=== PATIENT | female | born 1990 | race Two or more races ===

== ENCOUNTER 2016-10-29 01:58 | Outpatient (CLI) | payer OTHER ==
[~2016-10-29] VITALS: Ht 165.1 cm; Wt 93.1 kg
[2016-10-29 02:35] VITALS: Ht 165.1 cm; Wt 93.1 kg
[2016-10-29 03:48] LABS: ADD UMIC NO; URINE BILIRUBIN (Dip) NEGATIVE (NEGATIVE); URINE BLOOD (Dip) NEGATIVE (NEGATIVE); URINE COLOR LT. YELLOW (YELLOW); URINE GLUCOSE (Dip) NEGATIVE (NEGATIVE); URINE KETONES (Dip) NEGATIVE (NEGATIVE); URINE LEUKOCYTE ESTERASE (Dip) NEGATIVE (NEGATIVE); URINE NITRITE (Dip) NEGATIVE (NEGATIVE); URINE TOTAL PROTEIN (Dip) NEGATIVE (NEGATIVE); URINE UROBILINOGEN (Dip) 0.2 E.U./dL (0.1-1.0)
--- NOTE | 2016-10-29 03:48 | RADRPT ---
PROCEDURE: Obstetrical ultrasound, limited. CLINICAL INDICATION: Pelvic pain. TECHNIQUE: Multiple sonographic images of the pelvis were obtained using transabdominal technique . Images were obtained with dodd scale and color Doppler. The images were reviewed on a PACS works tation. COMPARISON: No prior studies are available for comparison. FINDINGS: There is a single living intrauterine gestation with the fetus in a vertex presentation. hear t tones of 146 beats per minute are identified. The placenta is posterior in location, grade 0. Th ere is normal amniotic fluid volume with the maximum vertical pocket measuring 5.3 cm. There is no evidence of placenta previa or abruption. Measurements were made in order to determine age. The results are as follows: BPD =4.74 cm HC =17.69 cm AC =14.02 cm FL =3.46 cm. Estimated gestational age of approximately 20 weeks and 1 day. The estimated date of delivery is 03/17/2017. The EFW = 333 +/- 50 grams. Estimated weight percentage equals 7.1%. IMPRESSION: Single viable intrauterine gestation of approximately 20 weeks and 1 day, with an ultrasound VIELKA of 03/17/2017. .Atif Painter MD, MD Date Time Electronically viewed and signed by .Atif Painter MD, MD on 10/29/2016 03:48 .T/
--- NOTE | 2016-10-29 04:28 | PN ---
Date/Time of Note Date/Time of Note DATE: 10/29/16 TIME: 04:25 OB Subjective Subjective Subjective 26 yo P1 @ 20 wks w abdominal pain - no VB, no ctx OB Objective Objective Objective 141/85, 80, 18, 97.8 Abdomen- gravid, n/t SVE- deferred sono- no evidence of placenta previa, nml BRITTNEE, size c/w/d Abdomen: WNL Contractions on Admission: None OB Assessment/Plan Other Assessment: 26 yo P1 @ 20 wks w back pain, now resolved - neg u/a - nml u/s Other plan: d/c home f/u in clinic CLIFFORD WHITE MD Oct 29, 2016 04:28
--- NOTE | 2016-10-29 04:50 | TRIAGE ---
OB Triage Datetime Report Generated by CPN: 10/29/2016 04:50 Datetime: 10/29/2016 03:12 Stage of : OB Triage Labor Evaluation Monitor Mode: External Resting Tone Baldwin: Relaxed Contraction Comments: NO CONTRACTIONS Pain Assessment Pain Scale: 0 Pain Presence: None/Denies Pain Type: N/A Pain Relief Measures: Comfort Measures Pain Assessment Comments: Pt states that her pain went away. Datetime: 10/29/2016 02:49 Stage of : OB Triage Datetime: 10/29/2016 02:12 Stage of : OB Triage Maternal Assessment Level of Consciousness: Fully Conscious DTR's/Clonus: No Clonus Headache: Denies Breath Sounds, Left: Clear and Equal Breath Sounds, Right: Clear and Equal Nausea/Vomiting: Denies RUQ Epigastric Pain: Denies Labor Evaluation Monitor Mode: External (Annotations: PT DENIES CRAMPING) Heart Rate Monitor Mode: Doppler Pain Assessment Pain Scale: 6 Pain Presence: Intermittent Pain Type: Cramping Pain Location: Back Pain Goal: 0 Datetime: 10/29/2016 02:06 Time of Arrival: 10/29/2016 01:50 EGA: 21.1 Arrived By: Ambulatory; Wheelchair Arrived From: Home Chief Complaint: BACK PAIN; VAGINAL PRESSURE Movement: Present Contractions: Denies/Absent Rupture of Membranes: Denies Vaginal Bleeding: None Vaginal Discharge: Denies Recent Sexual Intercouse: Denies Patient Complaints: Back Pain; Other Time Provider Notified: 10/29/2016 02:50 Provider Notified: CINDY Initial Plan: CONT TOCO UA U/S- EFW
== END 2016-10-29 04:30 | disposition home or self-care (01) ==
LOC: OBT 01:58 → L-D 01:59 → OBT 04:30
PROVIDERS: ATTEND Obstetrics & Gynecology
DX: O26.892 Other specified pregnancy related conditions, second trimester (principal); R10.9 Unspecified abdominal pain; M54.9 Dorsalgia, unspecified; Z3A.20 20 weeks gestation of pregnancy
CPT/HCPCS: 76815; 81003; Z7500; G0463

== ENCOUNTER 2017-02-05 11:34 | Outpatient (CLI) | payer OTHER ==
[~2017-02-05] VITALS: Ht 165.1 cm; Wt 99.8 kg
[2017-02-05 12:01] VITALS: Ht 165.1 cm; Wt 99.8 kg
--- NOTE | 2017-02-05 12:24 | RADRPT ---
PROCEDURE: Biophysical profile CLINICAL INDICATION: with vaginal bleeding. distress. TECHNIQUE: Color and dodd-scale ultrasound images of an intrauterine gestation were obtained. COMPARISON: None FINDINGS: A single live intrauterine gestation is identified in cephalic position with an estimated hear t rate of 124 beats per minute. The placenta is located laterally and has a grade 1. The cervix is obscured by head shadows. No evidence of abruption identified. BRITTNEE is 12.7 cm. movement 2/2. tone 2/2. breathing movement 2/2. Qualitative AFV 2/2 Total biophysical profile 02/27 IMPRESSION: 02/27 biophysical profile. RPTAT: AA .Rudy Sanderson MD, Date Time Electronically viewed and signed by .Rudy Sanderson MD, MD on 02/05/2017 12:24 .P/
[2017-02-05] MEDS ORDERED: PRENAT PO (14:06)
[2017-02-05] MEDS ORDERED: FERR325C PO (14:06)
[2017-02-05] MEDS ORDERED: CALC600T5 PO (14:06)
--- NOTE | 2017-02-05 15:04 | QN ---
Documentation Comment g1 ioup 35 weeks spotting vss wnl exam wnl us wnl ua negative a/p iup 35 weeks 3rd trimester bleeding dc home-stable DAGOBERTO MON MD Feb 05, 2017 15:04
--- NOTE | 2017-02-05 18:03 | TRIAGE ---
OB Triage Datetime Report Generated by CPN: 02/05/2017 18:03 Datetime: 02/05/2017 13:29 Labor Evaluation Frequency: irreg Monitor Mode: External Duration (sec)2399: 50-80 Quality: Moderate Pattern: Normal: <= 5 Contractions in 10 Minutes Resting Tone Axson: Relaxed Heart Rate FHR Baseline Rate: 135 Monitor Mode: External US Variability: Moderate 6-25 bpm Accelerations: 15X15 Decelerations: None Category: Category I Comments: nst reactive for gestational age Datetime: 02/05/2017 12:41 Maternal Assessment Level of Consciousness: Fully Conscious DTR's/Clonus: DTRs 2+; No Clonus Headache: Denies Blurred Vision: No Respiratory Effort: Unlabored; Regular Rhythm; Equal Expansion Breath Sounds, Left: Clear and Equal Breath Sounds, Right: Clear and Equal Nausea/Vomiting: Denies RUQ Epigastric Pain: Denies Facial Edema: None Fall Risk Assessment History of Falling: (0) No Secondary Diagnosis: (0) No Ambulatory Aid: (0) Bedrest/Nurse Assist IV Therapy: (0) No Gait: (0) Normal/Bedrest/Immobile Mental Status: (0) Oriented to Own Ability Fall Score: 0 Fall Risk Score Definition: No Risk: No action required Datetime: 02/05/2017 12:39 Time of Arrival: 02/05/2017 11:27 EGA: 35.2 Arrived By: Ambulatory Arrived From: Home Chief Complaint: R/O ABRUPTION VAGINAL BLEEDING THIS AM CAME IN WITH ORDERS FROM CLINIC Movement: Present Contractions: Denies/Absent Rupture of Membranes: Denies Vaginal Bleeding: None Vaginal Discharge: Denies Recent Sexual Intercouse: Denies Abdominal Trauma: Not Applicable Patient Complaints: None Time Provider Notified: 02/05/2017 13:26 Provider Notified: DR. LOPEZ Initial Plan: BPP, NST PLACENTA POSITION Datetime: 02/05/2017 12:00 Stage of : OB Triage Assessment Type: Ongoing Assessment Maternal Assessment Level of Consciousness: Fully Conscious DTR's/Clonus: DTRs 2+; No Clonus Headache: Denies Blurred Vision: No Respiratory Effort: Unlabored; Regular Rhythm; Equal Expansion Breath Sounds, Left: Clear and Equal Breath Sounds, Right: Clear and Equal Nausea/Vomiting: Denies RUQ Epigastric Pain: Denies Lower Extremities Edema: None Degree: None Upper Extremities Edema: None Degree: None Facial Edema: None Temperature Route: Axillary Fall Risk Assessment History of Falling: (0) No Secondary Diagnosis: (0) No Ambulatory Aid: (0) Bedrest/Nurse Assist IV Therapy: (0) No Gait: (0) Normal/Bedrest/Immobile Mental Status: (0) Oriented to Own Ability Fall Score: 0 Fall Risk Score Definition: No Risk: No action required Datetime: 10/29/2016 04:22 Stage of : OB Triage Datetime: 10/29/2016 04:12 Stage of : OB Triage Monitor Mode: External Resting Tone Axson: Relaxed Pain Assessment Pain Scale: 0 Pain Presence: None/Denies Pain Type: N/A Pain Relief Measures: Comfort Measures Datetime: 10/29/2016 02:06 EGA: 21.1 Arrived By: Wheelchair
== END 2017-02-05 14:43 | disposition home or self-care (01) ==
LOC: OBT 11:34 → L-D 11:34 → OBT 14:43
PROVIDERS: ATTEND Obstetrics & Gynecology
DX: O46.93 Antepartum hemorrhage, unspecified, third trimester (principal); Z3A.35 35 weeks gestation of pregnancy
CPT/HCPCS: 36415; 76818; Z7500; G0463

== ENCOUNTER 2017-03-09 13:27 | Inpatient (IN) | payer OTHER ==
[~2017-03-09] VITALS: Ht 165.1 cm; Wt 102.1 kg
[~2017-03-09 13:27] MED LIST: CALC600T5 PO; FERR325C PO; PRENAT PO
[2017-03-09 13:54] VITALS: Ht 165.1 cm; Wt 102.1 kg
[2017-03-09 13:55] VITALS: BP 120/72; PULSE 102; RESP 18
[2017-03-09] MEDS ORDERED: DINOPROSTONE 10 MG VAG SUPP VAG ONE (16:30)
[2017-03-09] MEDS ORDERED: OXYTOCIN 30 UNITS/LR 500 ML IV SCH ×2 (16:30)
[2017-03-09] MEDS ORDERED: BUTORPHANOL 2 MG INJ IV PRN (16:30)
[2017-03-09] MEDS ORDERED: CARBOPROST 250 MCG INJ IM PRN (16:30)
[2017-03-09] MEDS ORDERED: MINERAL OIL LIGHT 10 ML VIAL TOP ONE (16:30)
[2017-03-09] MEDS ORDERED: LACTATED RINGER'S 1,000 ML IV PRN (16:30)
[2017-03-09] MEDS ORDERED: MISOPROSTOL 200 MCG TAB PR PRN (16:30)
[2017-03-09] MEDS ORDERED: METHYLERGONOVINE 0.2 MG INJ IM PRN (16:30)
[2017-03-09] MEDS ORDERED: LIDOCAINE 1% (MPF) 30 ML INJ INJ PRN (16:30)
[2017-03-09] MEDS ORDERED: OXYTOCIN 30 UNITS/LR 500 ML IV PRN (16:30)
[2017-03-09] MEDS ORDERED: IBUPROFEN 600 MG TAB PO PRN (16:30)
[2017-03-09] MEDS: LACTATED RINGER'S 1,000 ML IV SCH (16:51)
[2017-03-09 17:10] LABS: BASOPHILS % 0.2 % (0.0-2.0); EOSINOPHILS # 0.2 10^3/ul (0.0-0.5); EOSINOPHILS % 2.6 % (0.0-7.0); HEMATOCRIT 32.5 % (37.0-47.0); HEMOGLOBIN 10.9 g/dl (12.0-16.0); LYMPHOCYTES # 1.5 10^3/ul (0.8-2.9); MEAN CORPUSCULAR HEMOGLOBIN 28.2 pg (29.0-33.0); MEAN CORPUSCULAR HGB CONC 33.5 g/dl (32.0-37.0); MEAN PLATELET VOLUME 10.9 fl (7.4-10.4); MONOCYTE # 0.7 10^3/ul (0.3-0.9); MONOCYTES % 7.9 % (0.0-11.0); NEUTROPHILS % 72.6 % (39.0-77.0); PLATELET COUNT 242 10^3/UL (140-415); RED BLOOD COUNT 3.87 10^6/ul (4.20-5.40); RED CELL DISTRIBUTION WIDTH 14.2 % (11.5-14.5); WHITE BLOOD COUNT 9.2 10^3/ul (4.8-10.8)
[2017-03-09 17:25] LABS: INR 0.91; PARTIAL THROMBOPLASTIN TIME 28.1 Sec (25.0-35.0); PROTIME 12.2 Sec (12.2-14.2)
--- NOTE | 2017-03-09 20:26 | HP ---
Date/Time of Note Date/Time of Note DATE: 03/09/17 TIME: 20:22 OB - History Hx of Present Free Text/Dictation Admitted through OB triage noticing variable deceleration on heart tracings A gestational age of 39 weeks and 6 days decision was made to proceed with induction of labor Patient self-referred herself to OB triage for diarrhea Last Menstrual Period: Jun 03, 2016 Estimated Due Date: Mar 10, 2017 : 2 Para: 1 Care: Good Care Ultrasounds: Normal mid trimester US Obstetrical Complications: None Medical Complications: None Past Family/Social History * Past Medical, Surgical, Family and Obstetric Histories reviewed from chart. Blood Type: O+ Rubella: immune RPR/VDRL: Negative GBS Status: Negative HBsAG: Negative OB Admission Exam Vital Signs Vital Signs Vital Signs Date Time Temp Pulse Resp B/P Pulse Ox O2 Delivery O2 Flow Rate FiO2 03/09/17 13:55 99.0 102 18 120/72 Room Air Physical Exam HEENT: WNL Heart: Rhythm Normal Lungs: Clear, Equal Abdomen: WNL Extremities: Normal Reflexes: Normal Cervical Dilatation: None Effacement: 0% Station: -2 Membranes: Intact Heart Rate: 140's Accelerations: Accelerations Present Decelerations: No Decelerations Varibility: Moderate Contractions on Admission: None Last 72 hours Lab Results CBC & BMP 03/09/17 16:40 OB Assessment/Plan Reason for admission: induction of labor Other Assessment: Term gestation Other plan: We will obtain contraction stress test If has negative contraction stress test will induce labor BERTO STAFFORD MD Mar 09, 2017 20:25
[2017-03-10] MEDS ORDERED: FENTAnyl 2MCG/ML-ROPIV 0.2% 100 ML ONE (04:15)
[2017-03-10] MEDS ORDERED: NALOXONE (0.4 MG/ML) INJ IV PRN (04:30)
[2017-03-10] MEDS: LACTATED RINGER'S 1,000 ML IV SCH ×3 (10:09→23:07)
[2017-03-10] MEDS: FENTAnyl 2MCG/ML-ROPIV 0.2% 100 ML BAG EPI SCH (14:33)
--- NOTE | 2017-03-10 15:51 | PN ---
Date/Time of Note Date/Time of Note DATE: 03/10/17 TIME: 15:50 OB Subjective Subjective Subjective No complaint of labor pain OB Objective Objective Objective Vital signs stable General physical exam is normal Cervix is long and fingertip No change since admission OB Assessment/Plan Reason for admission: induction of labor Other Assessment: Term gestation Other plan: We reinsert Cervidil at 2100 p.m. BERTO Allen MD Mar 10, 2017 15:51
--- NOTE | 2017-03-10 17:30 | RADRPT ---
PROCEDURE: US OB. CLINICAL INDICATION: Size and dates TECHNIQUE: Multiple sonographic images of the pelvis and gravid uterus were obtained. The images were reviewed on a PACS workstation. COMPARISON: 02/05/17 FINDINGS: There is a single viable intrauterine gestation. Cardiac activity is present with 156 beats per min savage. There is a vertex presentation. The placenta is right lateral. There is no evidence for an abruption or placenta previa. Measurements were made in order to determine age. The results are as follows: BPD =8.9 cm HC =32.95 cm AC =35.1 cm FL =7.8 cm Estimated gestational age of approximately 38 weeks and 6 days based on ultrasound measurements. Clinical age: 40 weeks and 0 days. The estimated date of delivery is 03/18/17, based on ultrasound measurements. The EFW = 3562 g, 45%, based on LMP age. RPTAT: AA IMPRESSION: Single viable intrauterine gestation of approximately 38 weeks and 6 days based on ultrasound measu rements. .Jose Romero MD, Date Time Electronically viewed and signed by .Jose Romero MD, on 03/10/2017 17:29 .S/
[2017-03-10] MEDS ORDERED: DINOPROSTONE 10 MG VAG SUPP VAG ONE (21:00)
[2017-03-11] MEDS: FENTAnyl 2MCG/ML-ROPIV 0.2% 100 ML BAG EPI SCH (02:07)
[2017-03-11] MEDS: LACTATED RINGER'S 1,000 ML IV SCH ×2 (07:22→11:18)
[2017-03-11] MEDS ORDERED: MINERAL OIL LIGHT 10 ML VIAL TOP ONE (09:30)
--- NOTE | 2017-03-11 11:09 | LDN ---
Date/Time of Note Date/Time of Note DATE: 03/11/17 TIME: 11:07 Delivery Summary Normal spontaneous vaginal delivery of a viable over intact perineum Weeks of Gestation 40+ Placenta Delivered: Spontaneously, Intact & Complete Meconium: none Episiotomy: No Perineal laceration: 1 Laceration repair: First-degree perineal laceration was repaired in layers with the 2-0 Vicryl and a 2-0 chromic stitches Anesthesia type: Epidural Estimated blood loss: 300 Sponge & Needle done & correct: Yes All needle counts correct: Yes Any foreign bodies felt in the: No Problems: Infant Delivery Information Sex Sex: female Apgars 1 Minute: 9 5 Minute: 9 Suctioning Nose & mouth suctioned at johnnie: Yes Delee suction performed: No Umbilical Cord Umbilical cord with: 3 Vessels Cord presentations: no nuchal cord Cord Blood was obtained: Yes Mother & Baby Disposition Disposition Mom & Baby to Maternity; Good: Yes (Mother and baby were recovered in good condition) Mom transferred to: Other (Maternity) Baby to NICU: No BERTO STAFFORD MD Mar 11, 2017 11:09
[2017-03-11 14:10] VITALS: BP 117/67; PULSE 80; RESP 20
[2017-03-11] MEDS ORDERED: WITCH HAZEL/GLYCERIN PAD PR PRN (14:30)
[2017-03-11] MEDS ORDERED: METHYLERGONOVINE 0.2 MG INJ IM PRN (14:30)
[2017-03-11] MEDS ORDERED: MISOPROSTOL 200 MCG TAB PR PRN (14:30)
[2017-03-11] MEDS ORDERED: CARBOPROST 250 MCG INJ IM PRN (14:30)
[2017-03-11] MEDS ORDERED: DIBUCAINE 1% 30 GM OINT PR PRN (14:30)
[2017-03-11] MEDS ORDERED: ZOLPIDEM 5 MG TAB PO PRN (14:30)
[2017-03-11] MEDS ORDERED: OXYTOCIN 30 UNITS/LR 500 ML IV PRN (14:30)
[2017-03-11] MEDS ORDERED: BENZOCAINE 20% 56 ML SPRAY TOP PRN (14:30)
[2017-03-11] MEDS ORDERED: HYDROCODONE/APAP (5/325) TAB PO PRN ×2 (14:30)
[2017-03-11] MEDS ORDERED: LANOLIN 7 GM TUBE TOP PRN (14:30)
[2017-03-11] MEDS: IBUPROFEN 600 MG TAB PO SCH ×3 (14:48→23:39)
[2017-03-11] MEDS: CEPHALEXIN 500 MG CAP PO SCH ×3 (14:49→23:40)
[2017-03-11 16:10] VITALS: BP 126/71; PULSE 80; RESP 20
[2017-03-11] MEDS: LACTATED RINGER'S 1,000 ML IV* SCH ×2 (19:32→19:34)
[2017-03-11 19:35] VITALS: BP 135/76; PULSE 69; RESP 19
[2017-03-11] MEDS: MAGNESIUM HYDROXIDE 30ML CUP PO SCH (21:10)
[2017-03-11] MEDS: SENNA/DOCUSATE NA (8.6MG/50MG) TAB PO SCH (21:10)
[2017-03-11 23:55] VITALS: BP 128/71; PULSE 69; RESP 18
[2017-03-12 03:50] VITALS: BP 112/61; PULSE 68; RESP 19
[2017-03-12] MEDS: IBUPROFEN 600 MG TAB PO SCH ×3 (05:34→18:02)
[2017-03-12] MEDS: CEPHALEXIN 500 MG CAP PO SCH ×2 (05:34→12:26)
[2017-03-12] MEDS: LACTATED RINGER'S 1,000 ML IV* SCH ×2 (05:34→14:07)
[2017-03-12 07:52] LABS: BASOPHILS % 0.3 % (0.0-2.0); EOSINOPHILS # 0.2 10^3/ul (0.0-0.5); EOSINOPHILS % 1.9 % (0.0-7.0); HEMATOCRIT 33.7 % (37.0-47.0); HEMOGLOBIN 11.7 g/dl (12.0-16.0); LYMPHOCYTES # 1.6 10^3/ul (0.8-2.9); LYMPHOCYTES % 12.5 % (15.0-51.0); MEAN CORPUSCULAR HGB CONC 34.7 g/dl (32.0-37.0); MEAN CORPUSCULAR VOLUME 83.4 fl (82.0-101.0); MEAN PLATELET VOLUME 10.8 fl (7.4-10.4); MONOCYTE # 0.7 10^3/ul (0.3-0.9); MONOCYTES % 5.2 % (0.0-11.0); NEUTROPHILS % 79.5 % (39.0-77.0); PLATELET COUNT 240 10^3/UL (140-415); RED BLOOD COUNT 4.04 10^6/ul (4.20-5.40); RED CELL DISTRIBUTION WIDTH 13.5 % (11.5-14.5); WHITE BLOOD COUNT 12.8 10^3/ul (4.8-10.8)
[2017-03-12 08:00] VITALS: BP 121/85; PULSE 67; RESP 17
[2017-03-12] MEDS: SENNA/DOCUSATE NA (8.6MG/50MG) TAB PO SCH (09:37)
[2017-03-12] MEDS: MAGNESIUM HYDROXIDE 30ML CUP PO SCH (09:37)
--- NOTE | 2017-03-12 16:37 | DS ---
Date/Time of Note Date/Time of Note DATE: 03/12/17 TIME: 16:36 Obstetrical Discharge Record Final Diagnosis Final Diagnosis: Term delivered Other Final Diagnosis S/P vaginal delivery Vaginal Delivery Obstetrical Delivery: Spontaneous, Laceration, Repaired Complications Augmentation: Yes Induction: Yes Condition on Discharge Physical Assessment Last Vitals: see nurses notes Voiding: Yes Bowel Movement: Yes Breast: Soft, non-tender, Filling Fundus: Firm Abdomen and Incision: soft BS + Episiotomy: NA perineum, : Healing Calf Tenderness: No Patient Condition: Good BERTO STAFFORD MD Mar 12, 2017 16:37
[2017-03-12] MEDS ORDERED: IBUP-1542 PO (16:38)
--- NOTE | 2017-03-12 16:39 | PD.PPDC ---
BACK TENDER Discharge Instruction Provider Information Physician Information 26-year-old female had vaginal delivery Diagnosis Final Diagnosis: Status post vaginal delivery Condition Patient Condition: Good Diet Diet: Resume Regular Diet Activity/Restrictions Activity: Normal Activity May Shower Restrictions: Nothing in the Vagina Return to Work or School: Apr 30, 2017 Follow-up Follow-up with Physician: 4, Week/Weeks (In clinic) Return to clinic for OB Instructions: Breast Tenderness Depression BERTO STAFFORD MD Mar 12, 2017 16:39
[2017-03-13] MEDS ORDERED: DIPHTH/TET/ACEL PERTUSS (ADULT) 0.5 ML VIAL IM* ONE (09:00)
[2017-03-13] MEDS ORDERED: MEASLES,MUMPS,RUBELLA VACCINE INJ SC* ONE (09:00)
[2017-03-13] MEDS ORDERED: VARICELLA VACCINE LIVE/PF 1,350 UNIT/0.5 ML ML SC* ONE (09:00)
== END 2017-03-12 18:45 | disposition home or self-care (01) | DRG 775 ==
LOC: L-D 13:27 → OBT 13:27 → L-D 15:36 → OBT 15:36 → L-D 16:38 → PP1 03-11 13:58
PROVIDERS: ADMIT Obstetrics & Gynecology; ATTEND Obstetrics & Gynecology
PROC: 10E0XZZ Delivery of Products of Conception, External Approach (ICD-10-PCS; principal; 2017-03-11)
PROC: 0HQ9XZZ Repair Perineum Skin, External Approach (ICD-10-PCS; 2017-03-11)
DX: O76 Abnormality in fetal heart rate and rhythm complicating labor and delivery (principal); O70.0 First degree perineal laceration during delivery; Z3A.39 39 weeks gestation of pregnancy; Z37.0 Single live birth
CPT/HCPCS: 62319; 76815; 85025; 85610; 85730; 86592; 86900; 86901; 87340; G0463; J2590; J3010; J7120